=== PATIENT | male | born 1995 | race Caucasian/White ===

== ENCOUNTER → 2017-02-17 | Outpatient (CLI) | payer OTHER ==
[~2017-02-17] VITALS: Ht 177.8 cm; Wt 90.7 kg
[~2017-02-17] MED LIST: AMOX500C2 PO; IBP800T PO; METH4TAB PO; MUPI22OI TP
--- NOTE | 2017-02-17 10:36 | Diagnostic Imaging Report ---
EXAMINATION: Fluoroscopic guided joint injection/arthrogram- left. INDICATION: Left shoulder pain, request for MR arthrogram of the shoulder is submitted. Fluoroscopy time: 15 seconds CONSENT: Informed consent was obtained from the patient. The risks, benefits, potential complications and alternatives were reviewed and all questions answered to the patient's satisfaction. PROCEDURE: After sterile preparation and draping, 1% lidocaine was utilized for local anesthesia. A 22 spinal needle is introduced into the glenohumeral joint under fluoroscopic guidance. After confirmation of proper positioning with intra-articular injection of, 12 ml of 1:150 concentration of Gadavist in normal saline is injected the into the joint. The patient tolerated the procedure well with no immediate complications. FINDINGS: Arthrogram demonstrates Normal distribution of contrast in the joint with no filling of the subacromial subdeltoid bursa seen. IMPRESSION: Successful fluoroscopic guided injection of diluted gadolinium into the left shoulder . MR arthrogram to follow. Dictated by: Dictated on workstation # [id number]
--- NOTE | 2017-02-17 11:10 | Diagnostic Imaging Report ---
PROCEDURE: MRI left joint upper extremity with contrast. TECHNIQUE: Multiplanar, multisequence contrast-enhanced MRI of the left upper extremity was accomplished. INDICATION: Recurrent left anterior shoulder dislocation. FINDINGS: There is a Hill-Sachs deformity with no significant marrow signal abnormality compatible with chronicity. There is mild superior subluxation of the humeral head. The acromioclavicular joint demonstrates minimal capsular hypertrophy with no significant osteophyte formation or other degenerative changes. The supraspinatus and infraspinatus tendons demonstrate slight thickening and areas of increased signal compatible with partial tears and tendinosis. This includes an undersurface focal partial tear along the distal infraspinatus tendon. No full-thickness or retracted tear. The long head of biceps is within its groove. The subscapularis tendon demonstrate no definite tear. There is a vertical tear seen through the superior segment of the labrum with extension of the tear into the biceps anchor without full-thickness tear or retraction of the long head biceps tendon. Other segments of the labrum are intact. The muscle bulk and signal is normal. IMPRESSION: 1. SLAP tear. 2. Infraspinatus and supraspinatus partial tears. Dictated by: Dictated on workstation # [id number]
== END ==
LOC: RAD 08:41
PROVIDERS: ATTEND Orthopaedic Surgery
DX: S43.013 Anterior subluxation of unspecified humerus (principal); S46.812A Strain of other muscles, fascia and tendons at shoulder and upper arm level, left arm, initial encounter; X58.XXXA Exposure to other specified factors, initial encounter; Y99.8 Other external cause status
CPT/HCPCS: 23350; 73040; 73222

== ENCOUNTER 2019-11-14 20:01 | Emergency (ER) | payer OTHER ==
[~2019-11-14] VITALS: Ht 173 cm; Wt 152.6 kg
[2019-11-14] MEDS ORDERED: ACETAMINOPHEN 500 MG TAB (TYLENOL) PO ONE (20:15)
--- NOTE | 2019-11-14 20:18 | ED Cough/URI ---
General Chief Complaint: Cough/Cold/Flu Symptoms Stated Complaint: SOA Source: patient Exam Limitations: no limitations History of Present Illness Date Seen by Provider: Nov 14, 2019 Time Seen by Provider: 20:05 Initial Comments Patient presents to ER by private conveyance that since Wednesday, yesterday he started eating some malaise and body aches and then 2 days having some cough, congestion, runny nose without sore throat and subjective fevers. He's been usin g ibuprofen with his last dose at 1700. He has a history of asthma when he was a child but does not take anything for now. His brother was recently diagnosed with influenza. He does not follow with a doctor nor has he had of influenza vaccine this year. Allergies and Home Medications Allergies Coded Allergies: No Known Allergies (Verified Allergy, Unknown, 03/10/08) Home Medications Albuterol Sulfate 1 Puff Puff, 2 PUFF IH Q4H PRN for WHEEZING 1 PUFF = 90 MCG Prescribed by: IRENE CORMIER on 11/14/192018 Ondansetron 4 Mg Tab.rapdis, 4 MG PO Q6H PRN for NAUSEA/VOMITING Prescribed by: IRENE CORMIER on 11/14/192018 Patient Home Medication List Home Medication List Reviewed: Yes Review of Systems Review of Systems Constitutional: chills, fever, malaise EENTM: No ear discharge, No ear pain Respiratory: cough; No phlegm; short of breath; No wheezing Cardiovascular: No chest pain, No palpitations Gastrointestinal: No abdominal pain, No constipation, No diarrhea, No nausea Genitourinary: No decreased output, No discharge Musculoskeletal: No back pain, No joint pain All Other Systems Reviewed Negative Unless Noted: Yes Past Vaphfkw-Cfnppf-Slqypb Hx Patient Social History Alcohol Use: Rarely Uses Number of Drinks Today: AA Alcohol Beverage of Choice: Beer Recreational Drug Use: No Smoking Status: Former Smoker Type Used: Cigarettes Former Smoker, Quit: Aug 12, 2014 Recent Foreign Travel: No Contact w/Someone Who Travel: No Recent Hopitalizations: No Physical Abuse: No Sexual Abuse: No Mistreated: No Fear: No Immunizations Up To Date Tetanus Booster (TDap): Unknown Seasonal Allergies Seasonal Allergies: Yes Past Medical History Surgeries: Yes (03/10/08 lap appy and abi choley with grams) Appendectomy, Gallbladder Respiratory: Yes Asthma Cardiac: No Neurological: No Reproductive Disorders: No Genitourinary: No Gastrointestinal: No Musculoskeletal: No Endocrine: No HEENT: No Cancer: No Psychosocial: Yes Anxiety Integumentary: No Blood Disorders: No Physical Exam Vital Signs - First Documented Capillary Refill : Height: 5'10.00" Weight: 200lbs. 0.0oz. [id number]; 28.7 BMI Method:Stated General Appearance: mild distress, obese Eyes: Bilateral Eye Normal Inspection, Bilateral Eye PERRL, Bilateral Eye EOMI HEENT: PERRL/EOMI, normal ENT inspection, TMs normal, pharynx normal (Oral mucosa is moist) Neck: full range of motion, normal inspection Respiratory: lungs clear, normal breath sounds, no respiratory distress, no accessory muscle use Cardiovascular: normal peripheral pulses, regular rate, rhythm, tachycardia ( 130) Extremities: normal range of motion, normal capillary refill Neurologic/Psychiatric: alert, normal mood/affect, oriented x 3 Skin: normal color, warm/dry Progress/Results/Core Measures Suspected Sepsis SIRS Temperature: Pulse: Respiratory Rate: Blood Pressure / Mean: Results/Orders Micro Results Microbiology 11/14/19 Influenza Types A,B Antigen (SADIE) - Final, Complete My Orders Orders - IRENE CORMIER Influenza A And B Antigens (11/14/19 20:11) Acetaminophen Tablet (Tylenol Tablet) (11/14/19 20:15) Medications Given in ED Current Medications Medications Dose Ordered Sig/Rita Route Start Time Stop Time Status Last Admin Dose Admin Acetaminophen 1,000 mg ONCE ONCE PO 11/14/19 20:15 11/14/19 20:16 DC 11/14/19 20:15 1,000 MG Vital Signs/I&O 11/14/19 11/14/19 11/14/19 20:05 20:05 20:15 Temp 38.0 38.0 Pulse 136 Resp 18 B/P (MAP) 153/100 (117) Pulse Ox 97 O2 Delivery Room Air Room Air Capillary Refill : Progress Note #1: Time: 20:14 Progress Note 1 g of Tylenol, influenza swab. If he does not have influenza then we may entertain a lab draw and x-ray looking for pneumonia. Progress Note #2: Time: 20:29 Progress Note Influenza B. Patient's blood pressures little on the soft side of that stays consistently low we may just give him a liter of lactated Ringer's before sending him out. Repeat blood pressure 153/109. Departure Impression Primary Impression: Influenza B Disposition: 01 HOME, SELF-CARE Condition: Stable Departure-Patient Inst. Decision time for Depature: 20:30 Referrals: NO,LOCAL PHYSICIAN (PCP/Family) Primary Care Physician Patient Instructions: Flu, Adult (DC) Add. Discharge Instructions: Continue to take Tylenol 1000 mg every 8 hours as needed for pain or fever. Ibuprofen 800 mg every 8 hours as needed for pain or fever. Tepid baths, cool washcloths can be helpful with fever and body aches. Vapor rubs such as Vicks or Mentholatum in addition to the humidifiers can help with the congestion. Drinking plenty of fluids to keep your secretions then as well as Mucinex to help break up secretions will make your congestion better. Get plenty of rest and use surface disinfectants such as Lysol around the house. Return to work after you've been 24 hours without a fever and no Tylenol or ibuprofen to mask it. Expect to be sick up to 2 weeks. Zofran 1 tablet every 6 hours as needed for nausea or vomiting. 2 puffs of per liter every 4 hours as needed for coughing or wheezing. Tamiflu one 75 mg capsule twice a day for the next 5 days to help reduce the severity and duration of influenza by about 1-2 days. All discharge instructions reviewed with patient and/or family. Voiced understanding. Scripts Inhaler, Assist Devices (Space Chamber Plus) 1 Each Spacer EACH MC for Wheezing, #1 Prov: IRENE CORMIER 11/14/19 Ondansetron (Ondansetron Odt) 4 Mg Tab.rapdis 4 MG PO Q6H PRN for NAUSEA/VOMITING, #8 TAB 0 Refills Prov: IRENE CORMIER 11/14/19 Albuterol Sulfate (PROAIR HFA) 1 Puff Puff 2 PUFF IH Q4H PRN for WHEEZING, #1 EA 0 Refills 1 PUFF = 90 MCG Prov: IRENE CORMIER 11/14/19 Work/School Note: Work Release Form Date Seen in the Emergency Department: Nov 14, 2019 Return to Work: Nov 27, 2019 Restrictions: Return-No Fever (24hrs) IRENE CORMIER Nov 14, 2019 20:18
[2019-11-14] MEDS ORDERED: RT-ALBUINH IH (20:19)
[2019-11-14] MEDS ORDERED: INHA1SPA24 MC (20:19)
[2019-11-14] MEDS ORDERED: ONDA4TAB11 PO (20:19)
[2019-11-14] MEDS ORDERED: RX-OSELTAMIVIR 75 MG (TAMIFLU) BOX OF 10 PO STA (20:32)
[2019-11-14 20:38] VITALS: BP 153/109
== END 2019-11-14 20:37 | disposition home or self-care (01) ==
LOC: EDUNIT# 20:01 → ER 20:03
DX: J10.1 Influenza due to other identified influenza virus with other respiratory manifestations (principal); J45.909 Unspecified asthma, uncomplicated; F41.9 Anxiety disorder, unspecified; Z87.891 Personal history of nicotine dependence; Z90.49 Acquired absence of other specified parts of digestive tract
CPT/HCPCS: 87804

== ENCOUNTER 2021-08-09 09:38 | Emergency (ER) | payer SELFPAY ==
[~2021-08-09] VITALS: Ht 175 cm; Wt 131.5 kg
[~2021-08-09 09:38] MED LIST changes: +INHA1SPA24 MC; +ONDA4TAB11 PO; +RT-ALBUINH IH
--- NOTE | 2021-08-09 10:37 | Diagnostic Imaging Report ---
INDICATION: Chest pain EXAMINATION: Chest 08/09/2021 FINDINGS: The cardiomediastinal silhouette is unremarkable. The pulmonary vasculature is within normal limits. The lungs and pleural spaces are clear. IMPRESSION: No evidence of an acute cardiopulmonary process. Dictated by: Dictated on workstation # [id number]
--- NOTE | 2021-08-09 10:40 | ED Chest Pain ---
General Chief Complaint: Chest Pain Stated Complaint: CP Nursing Triage Note: PT PRESENTS TO ED WITH COMPLAINTS OF CP, Source: patient Exam Limitations: no limitations (JANE RENDON APRN) History of Present Illness Date Seen by Provider: Aug 09, 2021 Time Seen by Provider: 10:38 Initial Comments To ER with reports of intermittent sharp midline chest pain since yesterday that comes and goes at random. Not present currently no shortness of breath no fever no chills. He also has some intermittent left flank pain that comes at random sharp in nature no fever no chills no dysuria. Timing/Duration: 1-2 days Severity/Quality: moderate Radiation: no radiation Activities at Onset: none ASA po ELEMENTARY ASSISTANT TEACHER: No NTG SL ELEMENTARY ASSISTANT TEACHER: No Associated Symptoms: denies symptoms (JANE RENDON APRN) Allergies and Home Medications Allergies Coded Allergies: No Known Allergies (Verified Allergy, Unknown, 03/10/08) Patient Home Medication List Home Medication List Reviewed: Yes (JANE RENDON APRN) Albuterol Sulfate (Proair Hfa) 1 Puff Puff, 2 PUFF IH Q4H PRN for WHEEZING Prescribed by: IRENE CORMIER on 11/14/192018 Inhaler, Assist Devices (Space Chamber Plus) 1 Each Spacer, EACH MC, (DME) Prescribed by: IRENE CORMIER on 11/14/192018 Ondansetron (Ondansetron Odt) 4 Mg Tab.rapdis, 4 MG PO Q6H PRN for NAUSEA/VOMITING Prescribed by: IRENE CORMIER on 11/14/192018 Review of Systems Review of Systems Constitutional: see HPI; No chills, No fever EENTM: No Symptoms Reported Respiratory: No Symptoms Reported Cardiovascular: See HPI, Chest Pain Gastrointestinal: See HPI, Abdominal Pain Genitourinary: No Symptoms Reported Musculoskeletal: no symptoms reported Skin: no symptoms reported Psychiatric/Neurological: No Symptoms Reported Endocrine: No Symptoms Reported Hematologic/Lymphatic: No Symptoms Reported (JANE RENDON APRN) Past [place]-Qx[place]j-Jojljg Hx Patient Social History Tobacco Use?: No Substance use?: Yes Substance type: Marijuana Substance frequency: Once in a while Alcohol Use?: Yes Alcohol Frequency: Once in a while Pt feels they are or have been: No (JANE RENDON APRN) Immunizations Up To Date Tetanus Booster (TDap): Unknown First/Initial COVID19 Vaccinat: N/A (JANE RENDON APRN) Seasonal Allergies Seasonal Allergies: Yes (JANE RENDON APRN) Past Medical History Surgery/Hospitalization HX: SX: APPY, GALLBLADDER, L SHOULDER, PMH: TACHYCARDIA Surgeries: Yes (03/10/08 lap appy and lap choley with grams) Appendectomy, Gallbladder Respiratory: Yes Asthma Cardiac: No Neurological: No Reproductive Disorders: No Genitourinary: No Gastrointestinal: No Musculoskeletal: No Endocrine: No HEENT: No Cancer: No Psychosocial: Yes Anxiety Integumentary: No Blood Disorders: No (JANE RENDON APRN) Physical Exam Vital Signs Vital Signs - First Documented 08/09/21 09:45 Temp 36.4 Pulse 89 Resp 18 B/P (MAP) 139/82 (101) Pulse Ox 98 (DONTA ARAGON MD) Vital Signs Capillary Refill : Less Than 3 Seconds (JANE RENDON APRN) Height, Weight, BMI Height: 5'10.00" Weight: 200lbs. 0.0oz. [id number]; 42.00 BMI Method:Stated General Appearance: No Apparent Distress, WD/WN, Obese Neck: Full Range of Motion, Normal Inspection Respiratory: No Accessory Muscle Use, No Respiratory Distress Cardiovascular: Regular Rate, Rhythm, Normal Peripheral Pulses Gastrointestinal: Non Tender, Soft Extremity: Normal Capillary Refill, Normal Inspection Neurologic/Psychiatric: Alert, Oriented x3 Skin: Normal Color, Warm/Dry (JANE RENDON APRN) Progress/Results/Core Measures Results/Orders Lab Results Laboratory Tests Test 08/09/21 10:20 08/09/21 11:23 Range/Units White Blood Count 9.2 4.3-11.0 10^3/uL Red Blood Count 4.95 4.30-5.52 10^6/uL Hemoglobin 13.6 13.3-17.7 g/dL Hematocrit 43 40-54 % Mean Corpuscular Volume 86 80-99 fL Mean Corpuscular Hemoglobin 28 25-34 pg Mean Corpuscular Hemoglobin Concent 32 32-36 g/dL Red Cell Distribution Width 14.2 10.0-14.5 % Platelet Count 133 130-400 10^3/uL Mean Platelet Volume 10.6 9.0-12.2 fL Immature Granulocyte % (Auto) 0 % Neutrophils (%) (Auto) 68 42-75 % Lymphocytes (%) (Auto) 26 12-44 % Monocytes (%) (Auto) 4 0-12 % Eosinophils (%) (Auto) 2 0-10 % Basophils (%) (Auto) 0 0-10 % Neutrophils # (Auto) 6.2 1.8-7.8 10^3/uL Lymphocytes # (Auto) 2.4 1.0-4.0 10^3/uL Monocytes # (Auto) 0.4 0.0-1.0 10^3/uL Eosinophils # (Auto) 0.1 0.0-0.3 10^3/uL Basophils # (Auto) 0.0 0.0-0.1 10^3/uL Immature Granulocyte # (Auto) 0.0 0.0-0.1 10^3/uL Percent Immature Platelet Fraction 3.7 0.0-7.6 % D-Dimer 0.35 0.00-0.49 UG/ML Sodium Level 138 135-145 MMOL/L Potassium Level 5.1 H 3.6-5.0 MMOL/L Chloride Level 103 98-107 MMOL/L Carbon Dioxide Level 25 21-32 MMOL/L Anion Gap 10 5-14 MMOL/L Blood Urea Nitrogen 13 7-18 MG/DL Creatinine 0.71 0.60-1.30 MG/DL Estimat Glomerular Filtration Rate 134 BUN/Creatinine Ratio 18 Glucose Level 92 70-105 MG/DL Calcium Level 9.7 8.5-10.1 MG/DL Corrected Calcium 9.9 8.5-10.1 MG/DL Total Bilirubin 0.5 0.1-1.0 MG/DL Aspartate Amino Transf (AST/SGOT) 25 5-34 U/L Alanine Aminotransferase (ALT/SGPT) 26 0-55 U/L Alkaline Phosphatase 97 40-136 U/L Total Protein 7.3 6.4-8.2 GM/DL Albumin 3.8 3.2-4.5 GM/DL Thyroid Stimulating Hormone (TSH) 1.52 0.35-4.94 UIU/ML Urine Color YELLOW Urine Clarity CLEAR Urine pH 8.5 5-9 Urine Specific [place] 1.015 L 1.016-1.022 Urine Protein NEGATIVE NEGATIVE Urine Glucose (UA) NEGATIVE NEGATIVE Urine Ketones NEGATIVE NEGATIVE Urine Nitrite NEGATIVE NEGATIVE Urine Bilirubin NEGATIVE NEGATIVE Urine Urobilinogen 0.2 < = 1.0 MG/DL Urine Leukocyte Esterase NEGATIVE NEGATIVE Urine RBC (Auto) NEGATIVE NEGATIVE Urine RBC NONE /HPF Urine WBC NONE /HPF Urine Squamous Epithelial Cells RARE /HPF Urine Crystals NONE /LPF Urine Bacteria NEGATIVE /HPF Urine Casts NONE /LPF Urine Mucus NEGATIVE /LPF Urine Culture Indicated NO (DONTA ARAGON MD) Vital Signs/I&O 08/09/21 08/09/21 09:45 11:48 Temp 36.4 Pulse 89 73 Resp 18 16 B/P (MAP) 139/82 (101) 108/58 Pulse Ox 98 98 (DONTA ARAGON MD) Blood Pressure Mean: 101 Departure Communication (Admissions) EKG shows normal sinus rhythm at 81 no ectopy normal intervals no ST segment change. Chest x-ray is clear. (JANE RENDON APRN) Impression Primary Impression: Pleuritic chest pain Disposition: HOME, SELF-CARE Condition: Stable Departure-Patient Inst. Decision time for Depature: 10:40 (JANE RENDON APRN) Referrals: NO,LOCAL PHYSICIAN (PCP/Family) Primary Care Physician Patient Instructions: Pleuritic Chest Pain (DC) ATTENDING PHYSICIAN NOTE: I was physically present as attending physician in the emergency department during the care of this patient, but I was not directly involved in the decision making or delivery of care for this patient. (DONTA ARAGON MD) JANE RENDON APRN Aug 09, 2021 10:40 DONTA ARAGON MD Aug 10, 2021 06:28
[2021-08-09 10:41] LABS: HEMOGLOBIN 13.6 g/dL (13.3-17.7)
[2021-08-09 10:42] LABS: ALBUMIN 3.8 GM/DL (3.2-4.5)
[2021-08-09 10:43] LABS: BASOPHILS % (AUTO) 0 % (0-10); EOSINOPHILS # (AUTO) 0.1 10^3/uL (0.0-0.3); EOSINOPHILS % (AUTO) 2 % (0-10); HEMATOCRIT 43 % (40-54); LYMPHOCYTES # (AUTO) 2.4 10^3/uL (1.0-4.0); LYMPHOCYTES % (AUTO) 26 % (12-44); MEAN CORPUSCULAR HEMOGLOBIN 28 pg (25-34); MEAN CORPUSCULAR HGB CONC 32 g/dL (32-36); MEAN CORPUSCULAR VOLUME 86 fL (80-99); MEAN PLATELET VOLUME 10.6 fL (9.0-12.2); MONOCYTES # (AUTO) 0.4 10^3/uL (0.0-1.0); MONOCYTES % (AUTO) 4 % (0-12); NEUTROPHILS # (AUTO) 6.2 10^3/uL (1.8-7.8); NEUTROPHILS % (AUTO) 68 % (42-75); PLATELET COUNT 133 10^3/uL (130-400); POTASSIUM 5.1 MMOL/L (3.6-5.0); WHITE BLOOD COUNT 9.2 10^3/uL (4.3-11.0)
[2021-08-09 10:44] LABS: CALCIUM 9.7 MG/DL (8.5-10.1)
[2021-08-09 10:45] LABS: TOTAL PROTEIN 7.3 GM/DL (6.4-8.2)
[2021-08-09 10:47] LABS: BILIRUBIN,TOTAL 0.5 MG/DL (0.1-1.0)
[2021-08-09 10:49] LABS: CREATININE SERUM 0.71 MG/DL (0.60-1.30)
[2021-08-09 11:31] LABS: BILIRUBIN,URINE NEGATIVE (NEGATIVE); CLARITY,URINE CLEAR; COLOR,URINE YELLOW; GLUCOSE, URINE (UA) NEGATIVE (NEGATIVE); KETONES,URINE NEGATIVE (NEGATIVE); LEUKOCYTE ESTERASE ,URINE NEGATIVE (NEGATIVE); NITRITE,URINE NEGATIVE (NEGATIVE); PH,URINE 8.5 (5-9); PROTEIN,URINE NEGATIVE (NEGATIVE)
[2021-08-09 11:38] LABS: BACTERIA,URINE NEGATIVE /HPF; SQUAMOUS EPITHELIAL CELL,UR RARE /HPF
[2021-08-09 11:48] VITALS: BP 108/58
== END 2021-08-09 11:48 | disposition home or self-care (01) ==
LOC: EDUNIT# 09:38 → ER 09:39
DX: R07.81 Pleurodynia (principal); J45.909 Unspecified asthma, uncomplicated; E66.9 Obesity, unspecified; Z68.41 Body mass index [BMI] 40.0-44.9, adult
CPT/HCPCS: 36415; 71045; 80053; 81000; 84443; 85025; 85379; 93005

== ENCOUNTER 2022-01-22 21:26 | Emergency (ER) | payer SELFPAY ==
[~2022-01-22] VITALS: Ht 175 cm; Wt 136.0 kg
[2022-01-22 21:35] VITALS: BP 146/98
[2022-01-22] MEDS ORDERED: NS IV 1000 ML 1,000 ML IV STA (21:52)
--- NOTE | 2022-01-22 21:52 | ED Respiratory ---
General Chief Complaint: Respiratory Problems Stated Complaint: SOB Nursing Triage Note: Pt arrives per POV w/ mother c/o SOB. States it's hard to breath out. Does relate hx of asthma. Pt ambulated to room, attached to NIBP and SpO2 monitors. Source: patient Exam Limitations: no limitations History of Present Illness Date Seen by Provider: Jan 22, 2022 Time Seen by Provider: 21:32 Initial Comments 27-year-old male with past medical history of childhood asthma and GERD coming in due to shortness of breath. He says he had COVID in October and never quite felt the same since then. Started feeling intermittently short of breath since November. Worsening this week. Went to [facility] and was started on an inhaler as well as Zyrtec which she says has been helping somewhat. Use the inhaler just prior to arrival he feels like this did help. Having some chest discomfort with breathing with it. Has never really experienced this before. His asthma has been well controlled since he was a child. Denies any fever, cough, abdominal pain, nausea, vomiting, diarrhea, weakness, numbness, rash, or any other concerns. Has not had any recent surgery, long travel, hemoptysis, no prior DVT or PE, does not take any hormones. Allergies and Home Medications Allergies Coded Allergies: No Known Allergies (Verified Allergy, Unknown, 03/10/08) Patient Home Medication List Home Medication List Reviewed: Yes Albuterol Sulfate (Proair Hfa) 1 Puff Puff, 2 PUFF IH Q4H PRN for WHEEZING Prescribed by: IERNE CORMIER on 11/14/192018 Inhaler, Assist Devices (Space Chamber Plus) 1 Each Spacer, EACH MC, (DME) Prescribed by: IRENE CORMIER on 11/14/192018 Ondansetron (Ondansetron Odt) 4 Mg Tab.rapdis, 4 MG PO Q6H PRN for NAUSEA/VOMITING Prescribed by: IRENE CORMIER on 11/14/192018 Review of Systems Review of Systems Constitutional: No chills, No fever EENTM: No blurred vision Respiratory: No cough; short of breath Cardiovascular: chest pain Gastrointestinal: No abdominal pain, No diarrhea, No vomiting Genitourinary: no symptoms reported Musculoskeletal: no symptoms reported Skin: no symptoms reported Psychiatric/Neurological: No Symptoms Reported Hematologic/Lymphatic: No Symptoms Reported Immunological/Allergic: no symptoms reported All Other Systems Reviewed Negative Unless Noted: Yes Past Azcrziq-Ncetye-Qqlxnf Hx Immunizations Up To Date Tetanus Booster (TDap): Unknown First/Initial COVID19 Vaccinat: N/A Seasonal Allergies Seasonal Allergies: Yes Past Medical History Surgery/Hospitalization HX: SX: APPY, GALLBLADDER, L SHOULDER, PMH: TACHYCARDIA Surgeries: Yes (03/10/08 lap appy and lap choley with grams) Appendectomy, Gallbladder Respiratory: Yes Asthma Cardiac: No Neurological: No Reproductive Disorders: No Genitourinary: No Gastrointestinal: No Musculoskeletal: No Endocrine: No HEENT: No Cancer: No Psychosocial: Yes Anxiety Integumentary: No Blood Disorders: No Physical Exam Vital Signs - First Documented 01/22/22 21:35 Temp 36.9 Pulse 119 Resp 20 B/P (MAP) 146/98 (114) Pulse Ox 97 O2 Delivery Room Air Capillary Refill : Less Than 3 Seconds Height: 5'10.00" Weight: 200lbs. 0.0oz. 90.334305vn; 44.00 BMI Method:Stated General Appearance: WD/WN, no apparent distress Eyes: Bilateral Eye Normal Inspection HEENT: PERRL/EOMI, normal ENT inspection, pharynx normal Neck: non-tender, full range of motion, supple, normal inspection Respiratory: chest non-tender, lungs clear, normal breath sounds, no respiratory distress, no accessory muscle use Cardiovascular: no edema, no murmur, tachycardia Gastrointestinal: normal bowel sounds, non tender, soft; No distended, No guarding, No rebound Extremities: normal range of motion, non-tender, normal inspection, no pedal edema, no calf tenderness, normal capillary refill Neurologic/Psychiatric: no motor/sensory deficits, alert, normal mood/affect Skin: normal color, warm/dry Lymphatic: no adenopathy Progress/Results/Core Measures Suspected Sepsis SIRS Temperature: Pulse: 119 Respiratory Rate: 20 Laboratory Tests 01/22/22 22:05: White Blood Count 13.6H Blood Pressure 146 /98 Mean: 114 Laboratory Tests 01/22/22 22:05: Creatinine 0.77, INR Comment 0.9, Platelet Count 298, Total Bilirubin 0.3 Results/Orders Lab Results Laboratory Tests Test 01/22/22 22:05 Range/Units White Blood Count 13.6 H 4.3-11.0 10^3/uL Red Blood Count 4.98 4.30-5.52 10^6/uL Hemoglobin 13.8 13.3-17.7 g/dL Hematocrit 42 40-54 % Mean Corpuscular Volume 85 80-99 fL Mean Corpuscular Hemoglobin 28 25-34 pg Mean Corpuscular Hemoglobin Concent 33 32-36 g/dL Red Cell Distribution Width 14.5 10.0-14.5 % Platelet Count 298 130-400 10^3/uL Mean Platelet Volume 9.8 9.0-12.2 fL Immature Granulocyte % (Auto) 1 % Neutrophils (%) (Auto) 64 42-75 % Lymphocytes (%) (Auto) 29 12-44 % Monocytes (%) (Auto) 5 0-12 % Eosinophils (%) (Auto) 0 0-10 % Basophils (%) (Auto) 0 0-10 % Neutrophils # (Auto) 8.7 H 1.8-7.8 10^3/uL Lymphocytes # (Auto) 4.0 1.0-4.0 10^3/uL Monocytes # (Auto) 0.7 0.0-1.0 10^3/uL Eosinophils # (Auto) 0.1 0.0-0.3 10^3/uL Basophils # (Auto) 0.1 0.0-0.1 10^3/uL Immature Granulocyte # (Auto) 0.1 0.0-0.1 10^3/uL Prothrombin Time 12.6 12.2-14.7 SEC INR Comment 0.9 0.8-1.4 Activated Partial Thromboplast Time 29 24-35 SEC D-Dimer < 0.27 0.00-0.49 UG/ML Sodium Level 142 135-145 MMOL/L Potassium Level 3.9 3.6-5.0 MMOL/L Chloride Level 103 98-107 MMOL/L Carbon Dioxide Level 22 21-32 MMOL/L Anion Gap 17 H 5-14 MMOL/L Blood Urea Nitrogen 13 7-18 MG/DL Creatinine 0.77 0.60-1.30 MG/DL Estimat Glomerular Filtration Rate 126 BUN/Creatinine Ratio 17 Glucose Level 124 H 70-105 MG/DL Calcium Level 9.7 8.5-10.1 MG/DL Corrected Calcium 9.8 8.5-10.1 MG/DL Magnesium Level 1.9 1.6-2.4 MG/DL Total Bilirubin 0.3 0.1-1.0 MG/DL Aspartate Amino Transf (AST/SGOT) 17 5-34 U/L Alanine Aminotransferase (ALT/SGPT) 29 0-55 U/L Alkaline Phosphatase 105 40-136 U/L Myoglobin 101.9 H 10.0-92.0 NG/ML Troponin I < 0.028 <0.028 NG/ML B-Type Natriuretic Peptide < 10.0 <100.0 PG/ML Total Protein 7.2 6.4-8.2 GM/DL Albumin 3.9 3.2-4.5 GM/DL My Orders Orders - NATHAN FREDERICK MD Cbc With Automated Diff (01/22/22 21:49) Magnesium (01/22/22 21:49) Chest 1 View, Ap/Pa Only (01/22/22 21:49) Ekg Tracing (01/22/22 21:49) Comprehensive Metabolic Panel (01/22/22 21:49) Myoglobin Serum (01/22/22 21:49) Protime With Inr (01/22/22 21:49) Partial Thromboplastin Time (01/22/22 21:49) O2 (01/22/22 21:49) Monitor-Rhythm Ecg Trace Only (01/22/22 21:49) Ed Iv/Invasive Line Start (01/22/22 21:49) Bnp Felicia (01/22/22 21:49) Fibrin Degradation Products (01/22/22 21:49) Troponin I Felicia (01/22/22 21:49) Ns Iv 1000 Ml (Sodium Chloride 0.9%) (01/22/22 21:52) Acetaminophen Tablet (Tylenol Tablet) (01/22/22 22:00) Medications Given in ED Current Medications Medications Dose Ordered Sig/Rita Route Start Time Stop Time Status Last Admin Dose Admin Acetaminophen 1,000 mg ONCE ONCE PO 01/22/22 22:00 01/22/22 22:01 DC 01/22/22 22:28 1,000 MG Vital Signs/I&O 01/22/22 21:35 Temp 36.9 Pulse 119 Resp 20 B/P (MAP) 146/98 (114) Pulse Ox 97 O2 Delivery Room Air Capillary Refill : Less Than 3 Seconds Blood Pressure Mean: 114 Progress Note : Progress Note 27-year-old male with above history coming in feeling short of breath with some chest discomfort. ABCs were intact and vitals were stable on presentation other than he was tachycardic from 10 5-1 30 when he was active. An IV was placed and he was given a bolus of IV fluids as well as Tylenol. Basic labs including cardiac biomarkers ordered. He is otherwise low risk for a PE but is not PERC negative given his tachycardia. D-dimer ordered and is undetectable. Given the constant shortness of breath for a couple months, if this were a PE I would suspect an elevation in the D-dimer. Troponin and BNP also normal. Chest x-ray clear without any abnormalities. This could be related to asthma especially given he felt better after his albuterol inhaler. We will give him some steroids and have him follow-up with his primary care physician. I believe he is stable for discharge with outpatient follow-up. He was sent home with strict return precautions ECG Initial ECG Impression Date: Jan 22, 2022 Initial ECG Impression Time: 21:51 Initial ECG Rate: 109 Initial ECG Rhythm: S.Tach Comment Narrow QRS, normal axis, T wave inversions in the inferior leads but otherwise no significant ST changes Diagnostic Imaging Diagonstic Imaging: Xray Plain Films/CT/US/NM/MRI: chest Comments [facility], [place] NAME: HITESH HINOJOSA [facility] REC#: [id number] PT STATUS: REG ER : 1995 PHYSICIAN: NATHAN FREDERICK MD ADMIT DATE: 01/22/22/ER Signed Date of Exam:01/22/22 CHEST 1 VIEW, AP/PA ONLY EXAMINATION: Chest 1 view. HISTORY: Chest pain. COMPARISON: 08/09/2021. FINDINGS: The lung volumes are normal. No focal consolidation is seen. No large pleural effusion or pneumothorax is seen. The cardiomediastinal silhouette is normal in size and contour. No acute osseous abnormality is seen. IMPRESSION: No acute pleuroparenchymal process. Dictated by: Dictated on workstation # [id number] Dict: 01/22/222228 Trans: 01/22/222241 [facility] [id number] Interpreted by: SILVANA JACOBSON DO Electronically signed by: SILVANA JACOBSON DO 01/22/22 2242 Departure Impression Primary Impression: Asthma exacerbation Qualified Codes: J45.901 - Unspecified asthma with (acute) exacerbation Disposition: HOME, SELF-CARE Condition: Stable Departure-Patient Inst. Decision time for Depature: 22:49 Referrals: NO,LOCAL PHYSICIAN (PCP/Family) Primary Care Physician Patient Instructions: Asthma, Adult ED Add. Discharge Instructions: Your labs look good including no signs of heart attack, no signs of a blood clot, and your chest x-ray looks clear with no signs of pneumonia. This could be related to asthma and subsequent things that are occurring from COVID. Steroids typically help with this so we have sent these to your pharmacy. Please follow-up with your regular doctor if you are not feeling better in the next couple days Scripts Methylprednisolone (Methylprednisolone Dose Pack) 4 Mg Tab.ds.pk 4 MG PO UD for 6 Days, #21 PKG PER DOSE PACK INSTRUCTIONS Prov: NATHAN FREDERICK MD 01/22/22 Work/School Note: Work Release Form Date Seen in the Emergency Department: Jan 22, 2022 Return to Work: Jan 24, 2022 Restrictions: No Restrictions NATHAN FREDERICK MD Jan 22, 2022 21:52
[2022-01-22] MEDS ORDERED: ACETAMINOPHEN 500 MG TAB (TYLENOL) PO ONE (22:00)
[2022-01-22 22:10] LABS: BASOPHILS # (AUTO) 0.1 10^3/uL (0.0-0.1); BASOPHILS % (AUTO) 0 % (0-10); EOSINOPHILS # (AUTO) 0.1 10^3/uL (0.0-0.3); EOSINOPHILS % (AUTO) 0 % (0-10); HEMATOCRIT 42 % (40-54); HEMOGLOBIN 13.8 g/dL (13.3-17.7); LYMPHOCYTES % (AUTO) 29 % (12-44); MEAN CORPUSCULAR HEMOGLOBIN 28 pg (25-34); MEAN CORPUSCULAR HGB CONC 33 g/dL (32-36); MEAN CORPUSCULAR VOLUME 85 fL (80-99); MEAN PLATELET VOLUME 9.8 fL (9.0-12.2); MONOCYTES # (AUTO) 0.7 10^3/uL (0.0-1.0); MONOCYTES % (AUTO) 5 % (0-12); NEUTROPHILS # (AUTO) 8.7 10^3/uL (1.8-7.8); NEUTROPHILS % (AUTO) 64 % (42-75); PLATELET COUNT 298 10^3/uL (130-400); WHITE BLOOD COUNT 13.6 10^3/uL (4.3-11.0)
[2022-01-22 22:23] LABS: ALBUMIN 3.9 GM/DL (3.2-4.5); INR 0.9 (0.8-1.4); PROTHROMBIN TIME PATIENT 12.6 SEC (12.2-14.7)
[2022-01-22 22:24] LABS: POTASSIUM 3.9 MMOL/L (3.6-5.0)
[2022-01-22 22:25] LABS: CALCIUM 9.7 MG/DL (8.5-10.1)
[2022-01-22 22:26] LABS: TOTAL PROTEIN 7.2 GM/DL (6.4-8.2)
[2022-01-22 22:28] LABS: BILIRUBIN,TOTAL 0.3 MG/DL (0.1-1.0)
[2022-01-22 22:29] LABS: CREATININE SERUM 0.77 MG/DL (0.60-1.30)
--- NOTE | 2022-01-22 22:31 | Diagnostic Imaging Report ---
EXAMINATION: Chest 1 view. HISTORY: Chest pain. COMPARISON: 08/09/2021. FINDINGS: The lung volumes are normal. No focal consolidation is seen. No large pleural effusion or pneumothorax is seen. The cardiomediastinal silhouette is normal in size and contour. No acute osseous abnormality is seen. IMPRESSION: No acute pleuroparenchymal process. Dictated by: Dictated on workstation # [id number]
[2022-01-22 22:32] LABS: MAGNESIUM 1.9 MG/DL (1.6-2.4)
[2022-01-22] MEDS ORDERED: METH4TAB10 PO (22:50)
== END 2022-01-22 23:19 | disposition home or self-care (01) ==
LOC: EDUNIT# 21:26 → ER 21:27
DX: J45.901 Unspecified asthma with (acute) exacerbation (principal); Z86.16 Personal history of COVID-19
CPT/HCPCS: 36415; 71045; 80053; 83735; 83874; 83880; 84484; 85025; 85379; 85610; 85730; 93005

== ENCOUNTER 2022-03-16 02:00 | Emergency (ER) | payer SELFPAY ==
[~2022-03-16] VITALS: Ht 175.3 cm; Wt 127.0 kg
[~2022-03-16 02:00] MED LIST changes: +METH4TAB10 PO
--- NOTE | 2022-03-16 02:38 | ED EENT ---
History of Present Illness General Chief Complaint: Ear Problems Stated Complaint: R EAR PAIN/SWELLING Nursing Triage Note: TO ED VIA POV AND AMBULATORY TO ROOM 5 WITH C/O RIGHT EAR PAIN FOR 3 DAYS. STATES TOOK 1GM TYLENOL 1.5H [employer]. Source: patient Exam Limitations: no limitations History of Present Illness Date Seen by Provider: March 16, 2022 Time Seen by Provider: 02:20 Initial Comments Patient is a 27-year-old male who presents to the emergency department with a chief complaint of right ear pain. Patient states that the symptoms started rather suddenly 3 days ago. He describes a fullness in his right ear with swelling and pain with movement of the right external ear. He denies any instrumentation of the ear canal. No fevers. No drainage. He states he is not diabetic. No recent upper respiratory tract symptoms. Patient states he did go to [facility] yesterday and was prescribed some drops for his ear but he states after 1 day he has not had much improvement. He did take a gram of Tylenol about an hour and a half prior to arrival. All other review of systems reviewed and negative except as stated Timing/Duration: abrupt Severity: moderate ("9") Location: ear (R) Prearrival Treatment: over the counter meds (tylenol), prescription meds (drops) Associated Symptoms: change in hearing, facial pain/swelling (right ear) Allergies and Home Medications Allergies Coded Allergies: No Known Allergies (Verified Allergy, Unknown, 03/10/08) Patient Home Medication List Home Medication List Reviewed: Yes Albuterol Sulfate (Proair Hfa) 1 Puff Puff, 2 PUFF IH Q4H PRN for WHEEZING Prescribed by: IRENE CORMIER on 11/14/192018 Inhaler, Assist Devices (Space Chamber Plus) 1 Each Spacer, EACH MC, (DME) Prescribed by: IRENE CORMIER on 11/14/192018 Methylprednisolone (Methylprednisolone Dose Pack) 4 Mg Tab.ds.pk, 4 MG PO UD Prescribed by: NATHAN FREDERICK on 01/22/222249 Ondansetron (Ondansetron Odt) 4 Mg Tab.rapdis, 4 MG PO Q6H PRN for NAUSEA/VOMITING Prescribed by: IRENE CORMIER on 11/14/192018 Review of Systems Review of Systems Constitutional: see HPI Ears: Pain Nose: no symptoms reported Throat: no symptoms reported Respiratory: no symptoms reported Cardiovascular: no symptoms reported All Other Systems Reviewed Negative Unless Noted: Yes Past Tnuoodd-Zwuqib-Dauoat Hx Patient Social History Tobacco Use?: No Substance use?: No Alcohol Use?: No Immunizations Up To Date Tetanus Booster (TDap): Unknown Influenza Vaccine Up-to-Date: No; Not Current First/Initial COVID19 Vaccinat: N/A Second COVID19 Vaccination Mat: N/A Third COVID19 Vaccination Date: N/A Seasonal Allergies Seasonal Allergies: Yes Past Medical History Surgery/Hospitalization HX: SX: APPY, GALLBLADDER, L SHOULDER, PMH: TACHYCARDIA, ASTHMA Surgeries: Yes (03/10/08 lap appy and lap choley with grams) Appendectomy, Gallbladder Respiratory: Yes Asthma Cardiac: No Neurological: No Reproductive Disorders: No Genitourinary: No Gastrointestinal: No Musculoskeletal: No Endocrine: No HEENT: No Cancer: No Psychosocial: Yes Anxiety Integumentary: No Blood Disorders: No Physical Exam Vital Signs Vital Signs - First Documented 03/16/22 02:18 Temp 36.7 Pulse 105 Resp 16 B/P (MAP) 160/121 (134) Pulse Ox 96 O2 Delivery Room Air Height, Weight, BMI Height: 5'10.00" Weight: 200lbs. 0.0oz. 90.679505xm; 41.00 BMI Method:Stated General Appearance: WD/WN, no apparent distress Eyes: bilateral eye normal inspection, bilateral eye PERRL, bilateral eye EOMI Ears: right ear swelling, right ear tenderness, right ear other (difficult to see the right TM secondary to canal swelling and discomfort with speculum exam. right auricle is slightly swollen with pain with manipulation. tenderness to the mastoid as well); left ear auricle normal, left ear canal normal, left ear TM normal Nose: normal inspection Mouth/Throat: normal mouth inspection Neck: full range of motion, supple, other (fullness noted inferior to the right ear - no discrete LAD) Respiratory: no respiratory distress, no accessory muscle use Neurologic/Psychiatric: alert, normal mood/affect, oriented x 3 Skin: normal color, warm/dry Procedures/Interventions Ear : Ear Location: Right Inserted: Ear Wick Inserted Medications: Coricosporin Otic Progress/Results/Core Measures Results/Orders Lab Results Laboratory Tests Test 03/16/22 02:40 Range/Units Glucometer 140 H 70-110 MG/DL My Orders Orders - MCKAYLA CUELLO MD Rx-Hydrocodone/Apap 5-325 Mg (Rx-Vicodin (03/16/22 02:30) Neomy/Poly/Hc Otic Suspension (Cortispor (03/16/22 09:00) Accucheck Stat ONCE (03/16/22 02:38) Neomy/Poly/Hc Otic Suspension (Cortispor (03/16/22 02:47) Medications Given in ED Current Medications Medications Dose Ordered Sig/Rita Route Start Time Stop Time Status Last Admin Dose Admin Acetaminophen/ Hydrocodone Bitart 1 ea Q6H PRN PO 03/16/22 02:30 03/16/22 02:34 1 EA Vital Signs/I&O 03/16/22 02:18 Temp 36.7 Pulse 105 Resp 16 B/P (MAP) 160/121 (134) Pulse Ox 96 O2 Delivery Room Air Blood Pressure Mean: 134 Departure Impression Primary Impression: Right otitis externa Qualified Codes: H60.331 - Swimmer's ear, right ear Disposition: HOME, SELF-CARE Condition: Stable (ERASED) Departure-Patient Inst. Decision time for Depature: 02:48 Referrals: [facility] (PCP/Family) Primary Care Physician Patient Instructions: Outer Ear Infection ED Add. Discharge Instructions: Continue to use the drops as directed 4 times a day for 1 week (a total of 7 days) - use 4-6 drops of your Ciprodex antibiotic. Protect the ear from water while bathing/showering. Use a cotton ball with a little vaseline on it to occlude the ear while showering. Please follow up with [facility] in one week for re-evaluation. Follow up sooner either with [facility] or the ER if you have worsening pain, fever over 101 or other concerning symptoms. I have given you some hydrocodone tablets tonight - you can take one at night to help with pain. Otherwise over the counter ibuprofen 600mg (3 pills) every 6 hours for pain. Also a heating pad/hot wash cloth agains the ear may help with pain. Copy Copies To 1: FLOWER NIXON KATHRYN M MD March 16, 2022 02:38
[2022-03-16] MEDS ORDERED: NEOMY/POLYM/HC (CORTISPORIN) 10 ML BTL ONE (02:47)
[2022-03-16 03:08] VITALS: BP 127/89
[2022-03-16] MEDS ORDERED: NEOMY/POLYM/HC (CORTISPORIN) 10 ML BTL OT SCH (09:00)
== END 2022-03-16 03:08 | disposition home or self-care (01) ==
LOC: EDUNIT# 02:00 → ER 02:02
DX: H60.331 Swimmer's ear, right ear (principal)
CPT/HCPCS: 82947

== ENCOUNTER 2023-10-01 10:50 | Emergency (ER) | payer SELFPAY ==
[~2023-10-01 10:50] MED LIST changes: +ALBU8.5H6 IH; -RT-ALBUINH IH
[2023-10-01 11:13] LABS: BASOPHILS # (AUTO) 0.1 10^3/uL (0.0-0.1); BASOPHILS % (AUTO) 0 % (0-10); EOSINOPHILS # (AUTO) 0.3 10^3/uL (0.0-0.3); EOSINOPHILS % (AUTO) 2 % (0-10); HEMATOCRIT 41 % (40-54); HEMOGLOBIN 12.8 g/dL (13.3-17.7); LYMPHOCYTES # (AUTO) 2.7 10^3/uL (1.0-4.0); LYMPHOCYTES % (AUTO) 20 % (12-44); MEAN CORPUSCULAR HEMOGLOBIN 27 pg (25-34); MEAN CORPUSCULAR HGB CONC 32 g/dL (32-36); MEAN CORPUSCULAR VOLUME 85 fL (80-99); MEAN PLATELET VOLUME 9.7 fL (9.0-12.2); MONOCYTES # (AUTO) 0.6 10^3/uL (0.0-1.0); MONOCYTES % (AUTO) 5 % (0-12); NEUTROPHILS % (AUTO) 73 % (42-75); PLATELET COUNT 334 10^3/uL (130-400); WHITE BLOOD COUNT 13.7 10^3/uL (4.3-11.0)
[2023-10-01 11:14] LABS: SMEAR SCAN COMMENT N
[2023-10-01] MEDS ORDERED: LACTATED RINGERS 1,000 ML 1,000 ML IV ONE (11:15)
[2023-10-01] MEDS ORDERED: KETOROLAC INJ 30 MG/ML VIAL IVP ONE (11:15)
--- NOTE | 2023-10-01 11:18 | ED Abdominal Pain ---
General Chief Complaint: Abdominal/GI Problems Stated Complaint: LT LOWER SIDE PAIN Nursing Triage Note: PT AMB TO RM 3 PT CO OF MID L BACK AROUND ABD DOWN TO TESTICLE. STARTED SUDDENLY APPROX 1 HOUR AGO. RATES PAIN 05/03 Source of Information: Patient Exam Limitations: No Limitations History of Present Illness Date Seen by Provider: Oct 01, 2023 Time Seen by Provider: 10:58 Initial Comments This 28-year-old young man presents to the emergency room by private vehicle with concerns about left flank pain radiating down toward the left testicle that started suddenly about 1 hour prior to presentation. He reports the testicles not actually painful or tender to the touch. He denies any hematuria or dysuria. He has not had fever, chills, vomiting, diarrhea, or constipation. He has no known history of ureteral stones or kidney stones. Allergies and Home Medications Allergies Coded Allergies: NKANo Known Allergies (Verified Allergy, Unknown, 03/10/08) Uncoded Allergies: OPIOID (Adverse Reaction, Unknown, NAUSEA, 10/01/23) Patient Home Medication List Home Medication List Reviewed: Yes Albuterol Sulfate (Ventolin Hfa) 1 Puff Puff, 2 PUFF IH Q4H PRN for WHEEZING Prescribed by: IRENE CORMIER on 11/14/192018 Hydrocodone/Acetaminophen (Hydrocodone-Acetamin 5-325 mg) 5 Mg-325 Mg Tablet, 1- 2 TAB PO Q4H PRN for PAIN-MODERATE TO SEVERE Prescribed by: DONTA ESPINOSA on 10/01/23 1426 Inhaler, Assist Devices (Space Chamber Plus) 1 Each Spacer, EACH MC, (DME) Prescribed by: IRENE CORMIER on 11/14/192018 Methylprednisolone (Methylprednisolone Dose Pack) 4 Mg Tab.ds.pk, 4 MG PO UD Prescribed by: NATHAN FREDERICK on 01/22/22 2250 Ondansetron (Ondansetron Odt) 4 Mg Tab.rapdis, 4 MG PO Q6H PRN for NAUSEA/VOMITING Prescribed by: IRENE CORMIER on 11/14/192018 Ondansetron (Ondansetron Odt) 4 Mg Tab.rapdis, 4 MG SL Q4H PRN for NAUSEA/VOMITING Prescribed by: DONTA ESPINOSA on 10/01/23 1425 Review of Systems Review of Systems Constitutional: no symptoms reported EENTM: No Symptoms Reported Respiratory: No Symptoms Reported Cardiovascular: No Symptoms Reported Gastrointestinal: See HPI Genitourinary: See HPI Musculoskeletal: no symptoms reported Skin: no symptoms reported Psychiatric/Neurological: No Symptoms Reported Endocrine: No Symptoms Reported Hematologic/Lymphatic: No Symptoms Reported Past Mdzweux-Dlojzk-Upjgne Hx Patient Social History Tobacco Use?: No Substance use?: No Alcohol Use?: No Pt feels they are or have been: No Immunizations Up To Date Tetanus Booster (TDap): Unknown First/Initial COVID19 Vaccinat: N/A Second COVID19 Vaccination Mat: N/A Third COVID19 Vaccination Date: N/A Seasonal Allergies Seasonal Allergies: Yes Past Medical History Surgery/Hospitalization HX: SX: APPY, GALLBLADDER, L SHOULDER, PMH: TACHYCARDIA, ASTHMA Surgeries: Yes (03/10/08 lap appy and lap choley with grams) Appendectomy, Gallbladder Respiratory: Yes Asthma Cardiac: Yes (History of tachycardia) Neurological: No Reproductive Disorders: No Genitourinary: No Gastrointestinal: No Musculoskeletal: No Endocrine: No HEENT: No Cancer: No Psychosocial: Yes Anxiety Integumentary: No Blood Disorders: No Physical Exam Vital Signs Vital Signs - First Documented 10/01/23 10:55 Temp 36.6 Pulse 96 Resp 18 B/P (MAP) 106/109 (108) Pulse Ox 98 Capillary Refill : Less Than 3 Seconds Height/Weight/BMI Height: 5'10.00" Weight: 200lbs. 0.0oz. 90.140292xp; 41.00 BMI Method:Stated General Appearance: WD/WN, no apparent distress, obese HEENT: normal ENT inspection Respiratory: lungs clear, normal breath sounds, no respiratory distress Cardiovascular: regular rate, rhythm, no edema, no murmur Gastrointestinal: normal bowel sounds, soft; No distended; tenderness (Minimal in the left abdomen) Extremities: normal inspection Neurologic/Psychiatric: no motor/sensory deficits, alert, normal mood/affect, oriented x 3 Skin: normal color, warm/dry Progress/Results/Core Measures Results/Orders Lab Results Laboratory Tests Test 10/01/23 11:05 10/01/23 11:50 Range/Units White Blood Count 13.7 H 4.3-11.0 10^3/uL Red Blood Count 4.79 4.30-5.52 10^6/uL Hemoglobin 12.8 L 13.3-17.7 g/dL Hematocrit 41 40-54 % Mean Corpuscular Volume 85 80-99 fL Mean Corpuscular Hemoglobin 27 25-34 pg Mean Corpuscular Hemoglobin Concent 32 32-36 g/dL Red Cell Distribution Width 15.3 H 10.0-14.5 % Platelet Count 334 130-400 10^3/uL Mean Platelet Volume 9.7 9.0-12.2 fL Immature Granulocyte % (Auto) 1 % Neutrophils (%) (Auto) 73 42-75 % Lymphocytes (%) (Auto) 20 12-44 % Monocytes (%) (Auto) 5 0-12 % Eosinophils (%) (Auto) 2 0-10 % Basophils (%) (Auto) 0 0-10 % Neutrophils # (Auto) 10.0 H 1.8-7.8 10^3/uL Lymphocytes # (Auto) 2.7 1.0-4.0 10^3/uL Monocytes # (Auto) 0.6 0.0-1.0 10^3/uL Eosinophils # (Auto) 0.3 0.0-0.3 10^3/uL Basophils # (Auto) 0.1 0.0-0.1 10^3/uL Immature Granulocyte # (Auto) 0.1 0.0-0.1 10^3/uL Sodium Level 139 135-145 MMOL/L Potassium Level 3.9 3.6-5.0 MMOL/L Chloride Level 105 98-107 MMOL/L Carbon Dioxide Level 23 21-32 MMOL/L Anion Gap 11 5-14 MMOL/L Blood Urea Nitrogen 13 7-18 MG/DL Creatinine 0.72 0.60-1.30 MG/DL Estimat Glomerular Filtration Rate 128 BUN/Creatinine Ratio 18 Glucose Level 126 H 70-105 MG/DL Calcium Level 9.4 8.5-10.1 MG/DL Corrected Calcium 9.3 8.5-10.1 MG/DL Total Bilirubin 0.5 0.1-1.0 MG/DL Aspartate Amino Transf (AST/SGOT) 19 5-34 U/L Alanine Aminotransferase (ALT/SGPT) 24 0-55 U/L Alkaline Phosphatase 98 40-136 U/L Total Protein 7.6 6.4-8.2 GM/DL Albumin 4.1 3.2-4.5 GM/DL Lipase < 4 L 8-78 U/L Smear Scan N Urine Color YELLOW Urine Clarity CLEAR Urine pH 6.0 5-9 Urine Specific [place] 1.010 L 1.016-1.022 Urine Protein NEGATIVE NEGATIVE Urine Glucose (UA) NEGATIVE NEGATIVE Urine Ketones NEGATIVE NEGATIVE Urine Nitrite NEGATIVE NEGATIVE Urine Bilirubin NEGATIVE NEGATIVE Urine Urobilinogen 0.2 < = 1.0 MG/DL Urine Leukocyte Esterase NEGATIVE NEGATIVE Urine RBC (Auto) 1+ H NEGATIVE Urine RBC 5-10 H /HPF Urine WBC NONE /HPF Urine Squamous Epithelial Cells RARE /HPF Urine Crystals NONE /LPF Urine Bacteria NEGATIVE /HPF Urine Casts NONE /LPF Urine Mucus NEGATIVE /LPF Urine Culture Indicated NO My Orders Orders - DONTA ARAGON MD Ua Culture If Indicated (10/01/23 10:58) Cbc And Automated Diff (10/01/23 11:04) Comprehensive Metabolic Panel (10/01/23 11:04) Lipase (10/01/23 11:04) Ed Iv/Invasive Line Start (10/01/23 11:04) Lactated Ringers 1,000 Ml (Lactated Ring (10/01/23 11:15) Ketorolac Injection (Ketorolac Injection (10/01/23 11:15) Ct Abd/Pelvis Wo(Kidney Stone) (10/01/23 12:42) Fentanyl Injection (Fentanyl Injection (10/01/23 12:45) Ondansetron Injection (Ondansetron Inj (10/01/23 13:45) Ondansetron Injection (Ondansetron Inj (10/01/23 13:38) Hydrocodone/Apap 5/325 Tablet (Hydrocod (10/01/23 14:30) Medications Given in ED Vital Signs/I&O 10/01/23 10/01/23 10:55 14:35 Temp 36.6 Pulse 96 82 Resp 18 18 B/P (MAP) 106/109 (108) 124/84 Pulse Ox 98 98 Blood Pressure Mean: 108 Progress Progress Note : Progress Note Hitesh was interviewed and examined. Toradol was ordered for pain management. He was hydrated with 1 L of LR. Labs were obtained and interpreted by me. CBC was notable for slight leukocytosis with WBC count of 13.7. CMP was relatively unremarkable. There was minor hyperglycemia with glucose of 126. Lipase was normal. Chemistry was otherwise unremarkable. Urinalysis was notable for 5-10 RBC on microscopy. Patient was further treated with fentanyl IV when pain rebounded. He became nauseous and was treated with Zofran. After review of labs, I discussed options with the patient. CT was offered to evaluate for ureteral stone. Risks and benefits were discussed. Risks included radiation exposure and cost. Patient elected to proceed with CT scan. I viewed the CT. There was a small ureteral stone at the left UVJ versus within the bladder. CT report from radiologist was reviewed as noted below. Patient was given additional treatment with hydrocodone prior to discharge. Discharge instructions were reviewed and he was discharged in improved condition. See discharge instructions for further discussion. Comment Normal sinus rhythm with no ST elevation or depression. No abnormal intervals or axis deviation. Diagnostic Imaging Diagonstic Imaging: CT Plain Films/CT/US/NM/MRI: abdomen, pelvis Comments NAME: HITESH HINOJOSA [facility] REC#: [id number] PT STATUS: REG ER : 1995 PHYSICIAN: DONTA ARAGON MD ADMIT DATE: 10/01/23/ER Draft Date of Exam:10/01/23 CT ABD/PELVIS WO(KIDNEY STONE) CLINICAL INDICATION: Patient complains of pain involving the mid left back around abdomen to the testicle. EXAM: CT exam of the abdomen and pelvis is performed without IV or oral contrast using stone protocol. Coronal and sagittal reformatted images were created. Auto Exposure Controls were utilized during the CT exam to meet ALARA standards for radiation dose reduction. COMPARISONS: None. FINDINGS: Visualized lung bases: There is mild atelectasis or scarring involving the middle lobe and lingular lung base regions. Otherwise, lung bases are clear. Liver: Unremarkable as visualized. Gallbladder: Unremarkable. Pancreas: Unremarkable as visualized. Spleen: Unremarkable as visualized. Adrenal glands: Unremarkable. Kidneys/ ureters: There is a 3 mm stone in the left UVJ/distal left ureter region. There is mild prominence of the left ureter and left renal collecting system. There is minimal left perinephric and left periureteral fat stranding. There are no other urinary tract stones seen. Both kidneys show no other significant abnormality. Aorta: Unremarkable as visualized. Intraabdominal/ retroperitoneal contents: Unremarkable. Intestines: Unremarkable as visualized. Appendix: Is either surgically resected or stump like. There is no inflammatory process seen in the region. Bladder: Besides the stone in the left UVJ region, the bladder is unremarkable. Pelvic organs: Unremarkable as visualized. Extra abdominal/ pelvis regions: Unremarkable. Abdominal wall: Unremarkable. Bones: Unremarkable. IMPRESSION: There is a 3 mm stone within the left UVJ/distal left ureter region with mild left hydroureteronephrosis. Dictated on workstation # [id number] Dict: 10/01/23 1330 Trans: 10/01/23 1343 [id number] Interpreted by: MARYLU VILLANUEVA MD Departure Impression Primary Impression: Left ureteral stone Disposition: 01 HOME, SELF-CARE Condition: Improved Departure-Patient Inst. Decision time for Depature: 14:20 Referrals: [facility] [place] (PCP/Family) Primary Care Physician Radha DOAN MD Patient Instructions: Kidney stones in adults Add. Discharge Instructions: You have a small 3 mm kidney stone at the end of your left ureter where the ureter joins the bladder. This will hopefully pass without any interventions. Drink plenty of clear liquids to stay well-hydrated and urinate often. This should help you pass the stone. For pain you may take ibuprofen up to 600 mg every 6 hours as needed. Add hydrocodone as prescribed for pain not controlled by ibuprofen. Use hydrocodone with caution as it may cause drowsiness. Do not drive, operate machinery, or make important decisions while on hydrocodone. Hydrocodone may also cause constipation, see may wish to use a stool softener such as Colace while taking hydrocodone. You may take Zofran (ondansetron) as prescribed for nausea or vomiting. Strain your urine and bring any stones collected to a follow-up appointment with your primary care provider. Please make a follow-up appointment with a primary care provider. Alternatively, you may schedule with Dr. Doan (urologist). Contact information is below. Return to the emergency room if you have worsening symptoms despite following these instructions or if you develop additional symptoms such as fever. All discharge instructions reviewed with patient and/or family. Voiced understanding. Scripts Ondansetron (Ondansetron Odt) 4 Mg Tab.rapdis 4 MG SL Q4H PRN for NAUSEA/VOMITING, #10 TAB Prov: DONTA ARAGON MD 10/01/23 Hydrocodone/Acetaminophen (Hydrocodone-Acetamin 5-325 mg) 5 Mg-325 Mg Tablet 1-2 TAB PO Q4H PRN for PAIN-MODERATE TO SEVERE, #10 TAB Prov: DONTA ARAGON MD 10/01/23 Copy Copies To 1: [facility]/DONTA YOUNG MD Oct 01, 2023 11:18
[2023-10-01 11:23] LABS: ALBUMIN 4.1 GM/DL (3.2-4.5)
[2023-10-01 11:24] LABS: CHLORIDE 105 MMOL/L (98-107); POTASSIUM 3.9 MMOL/L (3.6-5.0); SODIUM 139 MMOL/L (135-145)
[2023-10-01 11:25] LABS: CALCIUM 9.4 MG/DL (8.5-10.1)
[2023-10-01 11:26] LABS: GLUCOSE 126 MG/DL (70-105); TOTAL PROTEIN 7.6 GM/DL (6.4-8.2)
[2023-10-01 11:27] LABS: CARBON DIOXIDE 23 MMOL/L (21-32)
[2023-10-01 11:28] LABS: BILIRUBIN,TOTAL 0.5 MG/DL (0.1-1.0)
[2023-10-01 11:29] LABS: ALKALINE PHOSPHATASE 98 U/L (40-136)
[2023-10-01 11:30] LABS: CREATININE SERUM 0.72 MG/DL (0.60-1.30); GFR ESTIMATED 128
[2023-10-01 11:31] LABS: BUN/CREATININE RATIO 18
[2023-10-01 11:32] LABS: ALANINE AMINOTRANSFERASE 24 U/L (0-55)
[2023-10-01 11:33] LABS: LIPASE < 4 U/L (8-78)
[2023-10-01 12:15] LABS: CLARITY,URINE CLEAR; COLOR,URINE YELLOW
[2023-10-01 12:16] LABS: BACTERIA,URINE NEGATIVE /HPF; BILIRUBIN,URINE NEGATIVE (NEGATIVE); GLUCOSE, URINE (UA) NEGATIVE (NEGATIVE); KETONES,URINE NEGATIVE (NEGATIVE); LEUKOCYTE ESTERASE ,URINE NEGATIVE (NEGATIVE); NITRITE,URINE NEGATIVE (NEGATIVE); PROTEIN,URINE NEGATIVE (NEGATIVE); SQUAMOUS EPITHELIAL CELL,UR RARE /HPF
[2023-10-01] MEDS ORDERED: fentaNYL INJECTION 100 MCG/2 ML VIAL IVP ONE (12:45)
[2023-10-01] MEDS ORDERED: ONDANSETRON INJECTION 4 MG/2 ML (SDV) ONE (13:38)
--- NOTE | 2023-10-01 13:44 | Diagnostic Imaging Report ---
CLINICAL INDICATION: Patient complains of pain involving the mid left back around abdomen to the testicle. EXAM: CT exam of the abdomen and pelvis is performed without IV or oral contrast using stone protocol. Coronal and sagittal reformatted images were created. Auto Exposure Controls were utilized during the CT exam to meet ALARA standards for radiation dose reduction. COMPARISONS: None. FINDINGS: Visualized lung bases: There is mild atelectasis or scarring involving the middle lobe and lingular lung base regions. Otherwise, lung bases are clear. Liver: Unremarkable as visualized. Gallbladder: Unremarkable. Pancreas: Unremarkable as visualized. Spleen: Unremarkable as visualized. Adrenal glands: Unremarkable. Kidneys/ ureters: There is a 3 mm stone in the left UVJ/distal left ureter region. There is mild prominence of the left ureter and left renal collecting system. There is minimal left perinephric and left periureteral fat stranding. There are no other urinary tract stones seen. Both kidneys show no other significant abnormality. Aorta: Unremarkable as visualized. Intraabdominal/ retroperitoneal contents: Unremarkable. Intestines: Unremarkable as visualized. Appendix: Is either surgically resected or stump like. There is no inflammatory process seen in the region. Bladder: Besides the stone in the left UVJ region, the bladder is unremarkable. Pelvic organs: Unremarkable as visualized. Extra abdominal/ pelvis regions: Unremarkable. Abdominal wall: Unremarkable. Bones: Unremarkable. IMPRESSION: There is a 3 mm stone within the left UVJ/distal left ureter region with mild left hydroureteronephrosis. Dictated by: Dictated on workstation # [id number]
[2023-10-01] MEDS ORDERED: ONDANSETRON INJECTION 4 MG/2 ML (SDV) IVP ONE (13:45)
[2023-10-01] MEDS ORDERED: ONDA4TAB11 SL (14:25)
[2023-10-01] MEDS ORDERED: ACHD5005 PO (14:25)
[2023-10-01] MEDS ORDERED: HYDROcodone/ACETAMINOPHEN 5 MG/325 MG TABLET PO ONE (14:30)
[2023-10-01 14:35] VITALS: BP 124/84
== END 2023-10-01 14:35 | disposition home or self-care (01) ==
LOC: EDUNIT# 10:50 → ER 10:52
DX: N13.2 Hydronephrosis with renal and ureteral calculous obstruction (principal); E66.9 Obesity, unspecified; Z90.49 Acquired absence of other specified parts of digestive tract; Z68.41 Body mass index [BMI] 40.0-44.9, adult
CPT/HCPCS: 36415; 74176; 80053; 81000; 83690; 85025